=== PATIENT | female | born 1960 | race Caucasian/White ===

== ENCOUNTER 2020-05-08 22:33 | Emergency (ER) | payer MEDICARE ==
[2020-05-08] MEDS ORDERED: BABY ASPIRIN 81 MG CHEW PO ONE (23:07)
[2020-05-08] MEDS ORDERED: Nitrostat 0.4 MG (ED) SL ONE ×2 (23:07→23:47)
--- NOTE | 2020-05-08 23:10 | ERPHSYRPT ---
- History of Present Illness Time Seen by Provider: 05/08/20 23:02 Historian: patient Exam Limitations: no limitations Physician History: For the past 3 days pt has had left upper extremity pain; for the past 2 days HTN up to 162/108, mid back pain, shortness of air, nausea and mid chest heaviness. Aspirin Treatment Today: 81 mg x 4, provided by ED Allergies/Adverse Reactions: cephalexin [From Keflex] Allergy (Mild, Verified 05/09/20 00:38) Rash Home Medications: Duloxetine HCl 30 mg [Cymbalta 30 MG Capsule] 90 mg PO DAILY 05/09/20 [History] Levothyroxine Sodium 112 Mcg [Synthroid 112 Mcg] 112 mcg PO DAILY 05/09/20 [History] Metoprolol Succinate 100 mg [Toprol Xl 100 MG] 100 mg PO DAILY 05/09/20 [History] - Review of Systems Constitutional: No Fever Ears, Nose, & Throat: No Ear Pain, No Throat Pain Respiratory: Dyspnea, No Cough Cardiac: Other (chest heaviness) Abdominal/Gastrointestinal: Nausea, No Abdominal Pain, No Vomiting, No Diarrhea Genitourinary Symptoms: No Dysuria Musculoskeletal: Back Pain, Other (left upper extremity pain) Neurological: No Headache All Other Systems: Reviewed and Negative - Nursing Vital Signs Nursing Vital Signs: Initial Vital Signs Pulse Rate 83 05/08/20 23:35 Respiratory Rate 22 05/08/20 23:35 Blood Pressure 142/95 05/08/20 23:35 O2 Sat by Pulse Oximetry 98 05/08/20 23:35 Pain Scale Pain Intensity 3 - Physical Exam General Appearance: alert Eye Exam: PERRL/EOMI Ears, Nose, Throat Exam: pharynx normal Neck Exam: normal inspection Respiratory Exam: lungs clear Cardiovascular Exam: normal heart sounds Gastrointestinal/Abdomen Exam: soft, normal bowel sounds Back Exam: normal range of motion Extremity Exam: normal inspection Neurologic Exam: alert, cooperative Skin Exam: warm, dry SpO2 Interpretation: normal SpO2: 98 O2 Delivery: Room Air - Course Nursing assessment & vital signs reviewed: Yes EKG Interpreted by Me: RATE (71), Sinus Rhythm, NORMAL AXIS, Non-specific ST Changes - Radiology Exams Chest X-ray Interpretation: Interpreted by me, No Pneumonia Ordered Tests: Active Orders 24 hr Category Date Time Status Director Veterinary STAT Care 05/08/20 23:08 Active EKG-ER Only STAT Care 05/08/20 23:07 Active EKG-ER Only STAT Care 05/09/20 03:09 Active IV Insertion STAT Care 05/08/20 23:07 Active Pulse Oximetry (ED) STAT Care 05/08/20 23:07 Active CHEST 2 VIEWS (PA AND LAT) Stat Exams 05/09/20 00:30 Taken CBC W DIFF Stat Lab 05/08/20 23:41 Completed CMP Stat Lab 05/08/20 23:41 Completed D-DIMER QUANTITATIVE Stat Lab 05/08/20 23:41 Completed MAGNESIUM Stat Lab 05/08/20 23:41 Completed NT PRO BNP Stat Lab 05/08/20 23:41 Completed PROTIME WITH INR Stat Lab 05/08/20 23:41 Completed PTT Stat Lab 05/08/20 23:41 Completed TROPONIN Q3H Lab 05/08/20 23:41 Completed TROPONIN Q3H Lab 05/09/20 02:58 Completed TROPONIN Q3H Lab 05/09/20 05:15 Ordered TROPONIN Q3H Lab 05/09/20 08:15 Ordered TROPONIN Q3H Lab 05/09/20 11:15 Ordered Medication Summary Generic Name Dose Route Start Last Admin Trade Name Freq PRN Reason Stop Dose Admin Sodium Chloride 1,000 mls @ 100 mls/hr 05/08/20 23:15 05/08/20 23:52 Sodium Chloride 0.9% 1000 Ml IV 06/07/20 23:14 100 mls/hr .Q10H [place] Administration Discontinued Medications Generic Name Dose Route Start Last Admin Trade Name Freq PRN Reason Stop Dose Admin Aspirin 324 mg 05/08/20 23:07 05/08/20 23:52 Baby Aspirin 81 Mg Chew PO 05/08/20 23:08 324 mg STAT ONE Administration Aspirin Confirm 05/08/20 23:47 Baby Aspirin 81 Mg Chew Administered 05/08/20 23:48 Dose 324 mg .ROUTE .STK-MED ONE Nitroglycerin 0.4 mg 05/08/20 23:07 05/08/20 23:53 Nitrostat 0.4 Mg (Ed) SL 05/08/20 23:08 0.4 mg STAT ONE Administration Nitroglycerin Confirm 05/08/20 23:47 Nitrostat 0.4 Mg (Ed) Administered 05/08/20 23:48 Dose 0.4 mg SL .STK-MED ONE Lab/Rad Data: Laboratory Result Diagrams 05/08/20 23:41 05/08/20 23:41 Laboratory Results 05/09/20 05/08/20 05/08/20 Range/Units 02:58 23:41 23:41 WBC (4.0-10.5) K/mm3 RBC (4.1-5.4) M/mm3 Hgb (12.0-16.0) gm/dl Hct (35-47) % MCV (78-100) fl MCH (26-32) pg MCHC (32-36) g/dl RDW (11.5-14.0) % Plt Count (150-450) K/mm3 MPV (7.5-11.0) fl Gran % (36.0-66.0) % Eos # (Auto) (0-0.5) Absolute Lymphs (auto) (1.0-4.6) Absolute Monos (auto) (0.0-1.3) Lymphocytes % (24.0-44.0) % Monocytes % (0.0-12.0) % Eosinophils % (0.00-5.0) % Basophils % (0.0-0.4) % Absolute Granulocytes (1.4-6.9) Basophils # (0-0.4) PT 11.7 (9.95-12.35) SECONDS INR 1.04 (0.8-3.0) APTT 31.6 (25.3-37.0) SECONDS D-Dimer 322 (215-500) ng/mL Sodium (137-145) mmol/L Potassium (3.5-5.1) mmol/L Chloride (98-107) mmol/L Carbon Dioxide (22-30) mmol/L Anion Gap (5-15) MEQ/L BUN (7-17) mg/dL Creatinine (0.52-1.04) mg/dL Estimated GFR ML/MIN Glucose (74-106) mg/dL Calcium (8.4-10.2) mg/dL Magnesium (1.6-2.3) mg/dL Total Bilirubin (0.2-1.3) mg/dL AST (14-36) U/L ALT (0-35) U/L Alkaline Phosphatase (38-126) U/L Troponin I < 0.012 < 0.012 (0.000-0.034) ng/mL NT-Pro-B Natriuret Pep (0-900) pg/mL Serum Total Protein (6.3-8.2) g/dL Albumin (3.5-5.0) g/dL 05/08/20 05/08/20 Range/Units 23:41 23:41 WBC 8.4 (4.0-10.5) K/mm3 RBC 4.60 (4.1-5.4) M/mm3 Hgb 13.9 (12.0-16.0) gm/dl Hct 41.5 (35-47) % MCV 90.2 (78-100) fl MCH 30.2 (26-32) pg MCHC 33.5 (32-36) g/dl RDW 14.2 H (11.5-14.0) % Plt Count 315 (150-450) K/mm3 MPV 10.2 (7.5-11.0) fl Gran % 45.1 (36.0-66.0) % Eos # (Auto) 0.29 (0-0.5) Absolute Lymphs (auto) 3.55 (1.0-4.6) Absolute Monos (auto) 0.73 (0.0-1.3) Lymphocytes % 42.5 (24.0-44.0) % Monocytes % 8.7 (0.0-12.0) % Eosinophils % 3.5 (0.00-5.0) % Basophils % 0.2 (0.0-0.4) % Absolute Granulocytes 3.77 (1.4-6.9) Basophils # 0.02 (0-0.4) PT (9.95-12.35) SECONDS INR (0.8-3.0) APTT (25.3-37.0) SECONDS D-Dimer (215-500) ng/mL Sodium 139 (137-145) mmol/L Potassium 3.5 (3.5-5.1) mmol/L Chloride 104 (98-107) mmol/L Carbon Dioxide 28 (22-30) mmol/L Anion Gap 10.9 (5-15) MEQ/L BUN 12 (7-17) mg/dL Creatinine 0.92 (0.52-1.04) mg/dL Estimated GFR > 60.0 ML/MIN Glucose 110 H (74-106) mg/dL Calcium 8.8 (8.4-10.2) mg/dL Magnesium 2.0 (1.6-2.3) mg/dL Total Bilirubin 0.40 (0.2-1.3) mg/dL AST 28 (14-36) U/L ALT 21 (0-35) U/L Alkaline Phosphatase 74 (38-126) U/L Troponin I (0.000-0.034) ng/mL NT-Pro-B Natriuret Pep 55.8 (0-900) pg/mL Serum Total Protein 8.1 (6.3-8.2) g/dL Albumin 4.3 (3.5-5.0) g/dL - Progress Progress: unchanged Progress Note: 05/09/20 04:15 second EKG(0412): rate = 61, normal axis, sinus rhythm. Counseled pt/family regarding: lab results, diagnosis, rad results - Departure Departure Disposition: Home Clinical Impression: Chest heaviness, Dyspnea, Nausea, Back pain, Pain of left upper extremity, Hypertension Condition: Stable Critical Care Time: No Referrals: DOCTOR,NO FAMILY [Primary Care Provider] - Instructions: Chest Pain Additional Instructions: Follow up with private doctor tomorrow. Forms: Work/School Release Form Prescriptions: Ondansetron ODT 4 MG [Zofran Odt 4 mg] 4 mg PO Q6H PRN PRN #10 tab.rapdis PRN Reason: Nausea/Vomiting
[2020-05-08] MEDS ORDERED: Sodium Chloride 0.9% 1000 ML 1,000 ML IV SCH (23:15)
[2020-05-08 23:46] LABS: Absolute Neutrophil Ct (ANC) 3.77 (1.4-6.9); BASOPHIL % 0.2 % (0.0-0.4); Basophil (Absolute #) 0.02 (0-0.4); Eosinophil % 3.5 % (0.00-5.0); Eosinophil (Absolute #) 0.29 (0-0.5); Hematocrit 41.5 % (35-47); Hemoglobin 13.9 gm/dl (12.0-16.0); Lymphocyte (Absolute #) 3.55 (1.0-4.6); Lymphocytes % 42.5 % (24.0-44.0); Mean Cell Volume 90.2 fl (78-100); Mean Corpuscular Hemoglobin 30.2 pg (26-32); Mean Corpuscular Hgb Concent. 33.5 g/dl (32-36); Mean Platelet Volume 10.2 fl (7.5-11.0); Monocyte (Absolute #) 0.73 (0.0-1.3); Monocytes % 8.7 % (0.0-12.0); Neutrophil % 45.1 % (36.0-66.0); Platelet Count 315 K/mm3 (150-450); Red Cell Distribution Width 14.2 % (11.5-14.0); White Blood Count 8.4 K/mm3 (4.0-10.5)
[2020-05-08] MEDS ORDERED: Sodium Chloride 0.9% 1000 ML 1,000 ML ONE (23:47)
[2020-05-08] MEDS ORDERED: BABY ASPIRIN 81 MG CHEW ONE (23:47)
[2020-05-08 23:57] LABS: INR 1.04 (0.8-3.0); PROTIME 11.7 SECONDS (9.95-12.35)
[2020-05-08 23:59] LABS: PTT 31.6 SECONDS (25.3-37.0)
[2020-05-09 00:11] LABS: ALBUMIN 4.3 g/dL (3.5-5.0); ALKALINE PHOSPHATASE 74 U/L (38-126); ANION GAP 10.9 MEQ/L (5-15); BLOOD UREA NITROGEN 12 mg/dL (7-17); CHLORIDE 104 mmol/L (98-107); Calcium 8.8 mg/dL (8.4-10.2); Carbon Dioxide 28 mmol/L (22-30); Creatinine 1 0.92 mg/dL (0.52-1.04); EST GLOMERULAR FILTRATION RATE > 60.0 ML/MIN; Glucose 110 mg/dL (74-106); NT PRO BNP 55.8 pg/mL (0-900); Potassium 3.5 mmol/L (3.5-5.1); SGOT/AST 28 U/L (14-36); SGPT/ALT 21 U/L (0-35); SODIUM 139 mmol/L (137-145); Total Protein 8.1 g/dL (6.3-8.2)
[2020-05-09 05:01] VITALS: BP 164/99; PULSE 65; O2SAT 97
--- NOTE | 2020-05-09 09:18 | XRAY ---
Indication: Chest heaviness. Comparison: September 06, 2011. PA/lateral chest remains hyperinflated and clear. Heart is not enlarged. Bony thorax intact. No new/acute findings.
== END 2020-05-09 04:55 | disposition home or self-care (01) ==
LOC: ED 22:33
DX: R07.89 Other chest pain (principal); R11.0 Nausea; M54.5 Low back pain; M79.602 Pain in left arm; I10 Essential (primary) hypertension; R06.00 Dyspnea, unspecified
CPT/HCPCS: 36000; 36415; 71046; 80053; 83735; 83880; 84484; 85025; 85379; 85610; 85730; 93005; 93041; 94760; 99284; A9270-GY

== ENCOUNTER 2021-01-31 13:17 | Emergency (ER) | payer MEDICARE ==
[2021-01-31] MEDS ORDERED: MORPHINE SULFATE 4 MG INJ IV ONE (13:41)
[2021-01-31] MEDS ORDERED: Zofran 4 MG/2 ML VIAL IV ONE (13:41)
[2021-01-31] MEDS ORDERED: Sodium Chloride 0.9% 500 ML 500 ML IV ONE (13:45)
--- NOTE | 2021-01-31 13:50 | ERPHSYRPT ---
- History of Present Illness Time Seen by Provider: 01/31/21 13:18 Historian: patient Exam Limitations: no limitations Patient Subjective Stated Complaint: pt co pain to right side flank and right side of abd since last night no nausea or vomiting.no pain with urnination Triage Nursing Assessment: pt alert, resp easy, skin w/d/p, bas soft but tender to touch Physician History: 60 years old female with history of hypertension, hyperlipidemia, hypothyroidism, chronic back pain presented in the ER with chief complaint of right flank/right lower quadrant pain gradually worsening since last night moderate to severe intensity sharp pain without associated nausea vomiting or difficulty urination. Denies any diarrhea constipation. Does have history of back pain but this is different than her routine back pain. No numbness tingling or weakness of lower extremities. No loss of bowel or bladder control. Denies any history of kidney stones. Timing/Duration: yesterday, gradual onset, worse Activities at Onset: rest Quality: sharpness Abdominal Pain Onset Location: RLQ, flank Pain Radiation: RLQ Severity of Pain-Max: severe Severity of Pain-Current: severe Modifying Factors: Improves With: rest. Worsens With: coughing, movement, palpation Associated Symptoms: denies symptoms Previous symptoms: no prior history Allergies/Adverse Reactions: cephalexin [From Keflex] Allergy (Mild, Verified 01/31/21 13:33) Rash Home Medications: Duloxetine HCl 30 mg [Cymbalta 30 MG Capsule] 90 mg PO DAILY 05/09/20 [History] Levothyroxine Sodium 112 Mcg [Synthroid 112 Mcg] 112 mcg PO DAILY 05/09/20 [History] Metoprolol Succinate 100 mg [Toprol Xl 100 MG] 100 mg PO DAILY 05/09/20 [History] Lisinopril 10 mg [Zestril 10 MG] 1 ea DAILY 01/31/21 [History] Hx Tetanus, Diphtheria Vaccination/Date Given: No Hx Influenza Vaccination/Date Given: No Hx Pneumococcal Vaccination/Date Given: No Immunizations Up to Date: Yes Travel Risk - International Travel Have you traveled outside of the country in past 3 weeks: No - Coronavirus Screening Are you exhibiting any of the following symptoms?: No Close contact with a COVID-19 positive Pt in past 14-21 Days: No - Vaccine Status Have you recieved a Covid-19 vaccination: No - Review of Systems Constitutional: No Symptoms Eyes: No Symptoms Ears, Nose, & Throat: No Symptoms Respiratory: No Symptoms Cardiac: No Symptoms Abdominal/Gastrointestinal: Abdominal Pain Genitourinary Symptoms: No Symptoms Musculoskeletal: Back Pain Skin: No Symptoms Neurological: No Symptoms Psychological: No Symptoms Endocrine: No Symptoms Hematologic/Lymphatic: No Symptoms Immunological/Allergic: No Symptoms - Past Medical History Pertinent Past Medical History: Yes Neurological History: Migraines Cardiac History: Hypertension Endocrine Medical History: Hypothyroidism, Thyroid Cancer Musculoskeletal History: Arthritis, Fibromyalgia Psycho-Social History: Anxiety, Depression - Past Surgical History Past Surgical History: Yes Gastrointestinal: Cholecystectomy Female Surgical History: Hysterectomy, Section Other Surgical History: thyroidectomy - Social History Smoking Status: Never smoker Exposure to second hand smoke: Yes Drug Use: none Patient Lives Alone: Yes - Female History Hx Last Menstrual Period: post - Nursing Vital Signs Nursing Vital Signs: Initial Vital Signs Pulse Rate 72 01/31/21 15:21 Blood Pressure 163/98 01/31/21 15:21 O2 Sat by Pulse Oximetry 96 01/31/21 15:21 Pain Scale Pain Intensity [Right Lower 7 Abdomen] Pain Intensity 7 - Physical Exam General Appearance: no apparent distress, alert Eye Exam: PERRL/EOMI Ears, Nose, Throat Exam: normal ENT inspection, pharynx normal Neck Exam: normal inspection, non-tender, supple, full range of motion Respiratory Exam: normal breath sounds, lungs clear Cardiovascular Exam: regular rate/rhythm, normal heart sounds Gastrointestinal/Abdomen Exam: soft, normal bowel sounds, tenderness, guarding (Right lower quadrant/right flank) Back Exam: normal inspection, CVA tenderness, vertebral tenderness (Lumbar spinal and paraspinal tenderness. Also right sacroiliac area tenderness.), decreased range of motion, muscle spasm Extremity Exam: normal inspection, normal range of motion, pelvis stable Neurologic Exam: alert, oriented x 3, cooperative, statistical typist II-XII nml as tested, other (2+ reflexes bilateral symmetrical in lower extremities) Skin Exam: normal color, warm SpO2 Interpretation: normal O2 Delivery: Room Air Ordered Tests: Active Orders 24 hr Category Date Time Status IV Insertion STAT Care 01/31/21 13:41 Active ABDOMEN AND PELVIS W CONTRAST [CT] Stat Exams 01/31/21 13:42 Completed RECONSTRUCTION [CT] Routine Exams 01/31/21 13:47 Completed CBC W DIFF Stat Lab 01/31/21 14:08 Completed CMP Stat Lab 01/31/21 14:08 Completed LIPASE Stat Lab 01/31/21 14:08 Completed Lactic Acid Stat Lab 01/31/21 13:41 Completed UA W/RFX UR CULTURE Stat Lab 01/31/21 13:46 Completed Medication Summary Discontinued Medications Generic Name Dose Route Start Last Admin Trade Name Neftali PRN Reason Stop Dose Admin Sodium Chloride 500 mls @ 500 mls/hr 01/31/21 13:45 01/31/21 15:21 Sodium Chloride 0.9% 500 Ml IV 01/31/21 14:44 Infused .Q1H ONE Infusion Sodium Chloride Confirm 01/31/21 13:56 Sodium Chloride 0.9% 1000 Ml Administered 01/31/21 13:57 Dose 1,000 mls @ ud .ROUTE .STK-MED ONE Morphine Sulfate 4 mg 01/31/21 13:41 01/31/21 13:59 Morphine Sulfate 4 Mg Inj IV 01/31/21 13:42 4 mg STAT ONE Administration Morphine Sulfate Confirm 01/31/21 13:55 Morphine Sulfate 4 Mg Inj Administered 01/31/21 13:56 Dose 4 mg .ROUTE .STK-MED ONE Ondansetron HCl 4 mg 01/31/21 13:41 01/31/21 13:59 Zofran 4 Mg/2 Ml Vial IV 01/31/21 13:42 4 mg STAT ONE Administration Ondansetron HCl Confirm 01/31/21 13:55 Zofran 4 Mg/2 Ml Vial Administered 01/31/21 13:56 Dose 4 mg .ROUTE .STK-MED ONE Lab/Rad Data: Laboratory Result Diagrams 01/31/21 14:08 01/31/21 14:08 Laboratory Results 01/31/21 01/31/21 01/31/21 Range/Units 14:08 14:08 13:46 WBC 8.7 (4.0-10.5) K/mm3 RBC 4.81 (4.1-5.4) M/mm3 Hgb 14.2 (12.0-16.0) gm/dl Hct 43.6 (35-47) % MCV 90.6 (78-100) fl MCH 29.5 (26-32) pg MCHC 32.6 (32-36) g/dl RDW 13.8 (11.5-14.0) % Plt Count 380 (150-450) K/mm3 MPV 10.4 (7.5-11.0) fl Gran % 58.0 (36.0-66.0) % Eos # (Auto) 0.19 (0-0.5) Absolute Lymphs (auto) 2.86 (1.0-4.6) Absolute Monos (auto) 0.58 (0.0-1.3) Lymphocytes % 32.9 (24.0-44.0) % Monocytes % 6.7 (0.0-12.0) % Eosinophils % 2.2 (0.00-5.0) % Basophils % 0.2 (0.0-0.4) % Absolute Granulocytes 5.03 (1.4-6.9) Basophils # 0.02 (0-0.4) Sodium 142 (137-145) mmol/L Potassium 4.0 (3.5-5.1) mmol/L Chloride 102 (98-107) mmol/L Carbon Dioxide 33 H (22-30) mmol/L Anion Gap 11.0 (5-15) MEQ/L BUN 8 (7-17) mg/dL Creatinine 0.99 (0.52-1.04) mg/dL Estimated GFR > 60.0 ML/MIN Glucose 90 (74-106) mg/dL Lactic Acid (0.4-2.0) Calcium 9.1 (8.4-10.2) mg/dL Total Bilirubin 0.40 (0.2-1.3) mg/dL AST 27 (14-36) U/L ALT 20 (0-35) U/L Alkaline Phosphatase 83 (38-126) U/L Serum Total Protein 8.1 (6.3-8.2) g/dL Albumin 4.4 (3.5-5.0) g/dL Lipase 39 (23-300) U/L Urine Color YELLOW (YELLOW) Urine Appearance CLEAR (CLEAR) Urine pH 5.0 (5-6) Ur Specific [place] 1.014 (1.005-1.025) Urine Protein NEGATIVE (Negative) Urine Ketones NEGATIVE (NEGATIVE) Urine Blood NEGATIVE (0-5) Nic/ul Urine Nitrite NEGATIVE (NEGATIVE) Urine Bilirubin NEGATIVE (NEGATIVE) Urine Urobilinogen NEGATIVE (0-1) mg/dL Ur Leukocyte Esterase NEGATIVE (NEGATIVE) Urine WBC (Auto) NONE (0-5) /HPF Urine RBC (Auto) NONE (0-2) /HPF U Epithel Cells (Auto) NONE (FEW) /HPF Urine Bacteria (Auto) NONE (NEGATIVE) /HPF Urine Mucus (Auto) SLIGHT (NEGATIVE) /HPF Urine Culture Reflexed NO (NO) Urine Glucose NEGATIVE (NEGATIVE) mg/dL 01/31/21 Range/Units 13:41 WBC (4.0-10.5) K/mm3 RBC (4.1-5.4) M/mm3 Hgb (12.0-16.0) gm/dl Hct (35-47) % MCV (78-100) fl MCH (26-32) pg MCHC (32-36) g/dl RDW (11.5-14.0) % Plt Count (150-450) K/mm3 MPV (7.5-11.0) fl Gran % (36.0-66.0) % Eos # (Auto) (0-0.5) Absolute Lymphs (auto) (1.0-4.6) Absolute Monos (auto) (0.0-1.3) Lymphocytes % (24.0-44.0) % Monocytes % (0.0-12.0) % Eosinophils % (0.00-5.0) % Basophils % (0.0-0.4) % Absolute Granulocytes (1.4-6.9) Basophils # (0-0.4) Sodium (137-145) mmol/L Potassium (3.5-5.1) mmol/L Chloride (98-107) mmol/L Carbon Dioxide (22-30) mmol/L Anion Gap (5-15) MEQ/L BUN (7-17) mg/dL Creatinine (0.52-1.04) mg/dL Estimated GFR ML/MIN Glucose (74-106) mg/dL Lactic Acid 1.3 (0.4-2.0) Calcium (8.4-10.2) mg/dL Total Bilirubin (0.2-1.3) mg/dL AST (14-36) U/L ALT (0-35) U/L Alkaline Phosphatase (38-126) U/L Serum Total Protein (6.3-8.2) g/dL Albumin (3.5-5.0) g/dL Lipase (23-300) U/L Urine Color (YELLOW) Urine Appearance (CLEAR) Urine pH (5-6) Ur Specific [place] (1.005-1.025) Urine Protein (Negative) Urine Ketones (NEGATIVE) Urine Blood (0-5) Nic/ul Urine Nitrite (NEGATIVE) Urine Bilirubin (NEGATIVE) Urine Urobilinogen (0-1) mg/dL Ur Leukocyte Esterase (NEGATIVE) Urine WBC (Auto) (0-5) /HPF Urine RBC (Auto) (0-2) /HPF U Epithel Cells (Auto) (FEW) /HPF Urine Bacteria (Auto) (NEGATIVE) /HPF Urine Mucus (Auto) (NEGATIVE) /HPF Urine Culture Reflexed (NO) Urine Glucose (NEGATIVE) mg/dL - Progress Progress: improved, re-examined Progress Note: 01/31/21 16:08 60 years old is evaluated for right flank/right lower quadrant and back pain. She is given symptomatic treatment for pain, on reevaluation feeling much bet ter. No peritoneal signs on repeated evaluation. She has a normal white count, grossly unremarkable chemistries. No UTI. I have obtained CT abdomen pelvis with IV contrast which is negative for any acute intraabdominal findings. I have also obtained lumbar reconstruction which showed L4-S1 disc bulge but has negative neuro exam in lower extremities. Do not think she needs emergent MRI. This could be the cause of her pain. She is advised to follow-up with her primary care for reevaluation. We will give pain medications to go home to take as needed. Discussed signs symptoms of worsening needing return to ER which she seems understanding. 01/31/21 16:10 Counseled pt/family regarding: lab results, diagnosis, need for follow-up, rad results - Departure Departure Disposition: Home Clinical Impression: Bulging lumbar disc, RLQ abdominal pain Condition: Stable Critical Care Time: No Referrals: VANDANA RING NP [Primary Care Provider] - (1-2 days for reevaluation) Instructions: Low Back Pain (DC), Acute Abdomen (Belly Pain), Adult (DC) Additional Instructions: Take pain medications as needed. Avoid exertional activities. Follow-up with primary care physician for reevaluation and may need MRI of your back for further evaluation of bulging disc. Return to ER for intractable pain, numbness tingling weakness of lower extremities/loss of bowel or bladder control. Prescriptions: Hydrocodone/APAP 5/325 [[place] 5/325 mg] 1 each PO Q6H PRN PRN 3 Days #12 tablet MDD 4 PRN Reason: Pain Cyclobenzaprine HCl 10 mg [Flexeril 10 MG] 10 mg PO TID #20 tablet
[2021-01-31] MEDS ORDERED: Zofran 4 MG/2 ML VIAL ONE (13:55)
[2021-01-31] MEDS ORDERED: MORPHINE SULFATE 4 MG INJ ONE (13:55)
[2021-01-31] MEDS ORDERED: Sodium Chloride 0.9% 1000 ML 1,000 ML ONE (13:56)
[2021-01-31 14:06] LABS: Appearance CLEAR (CLEAR); Bilirubin NEGATIVE (NEGATIVE); Blood NEGATIVE Ery/ul (0-5); Glucose NEGATIVE (NEGATIVE); Ketones NEGATIVE (NEGATIVE); Leukocyte Esterase NEGATIVE (NEGATIVE); Mucus SLIGHT /HPF (NEGATIVE); Nitrite NEGATIVE (NEGATIVE); Protein,Urine Dip NEGATIVE (Negative); Specific Gravity 1.014 (1.005-1.025); Urobilinogen NEGATIVE mg/dL (0-1)
[2021-01-31 14:09] LABS: Absolute Neutrophil Ct (ANC) 5.03 (1.4-6.9); BASOPHIL % 0.2 % (0.0-0.4); Basophil (Absolute #) 0.02 (0-0.4); Eosinophil % 2.2 % (0.00-5.0); Eosinophil (Absolute #) 0.19 (0-0.5); Hematocrit 43.6 % (35-47); Hemoglobin 14.2 gm/dl (12.0-16.0); Lymphocyte (Absolute #) 2.86 (1.0-4.6); Lymphocytes % 32.9 % (24.0-44.0); Mean Cell Volume 90.6 fl (78-100); Mean Corpuscular Hemoglobin 29.5 pg (26-32); Mean Corpuscular Hgb Concent. 32.6 g/dl (32-36); Mean Platelet Volume 10.4 fl (7.5-11.0); Monocyte (Absolute #) 0.58 (0.0-1.3); Monocytes % 6.7 % (0.0-12.0); Platelet Count 380 K/mm3 (150-450); Red Blood Count 4.81 M/mm3 (4.1-5.4); Red Cell Distribution Width 13.8 % (11.5-14.0); White Blood Count 8.7 K/mm3 (4.0-10.5)
[2021-01-31 14:22] LABS: ALBUMIN 4.4 g/dL (3.5-5.0); ALKALINE PHOSPHATASE 83 U/L (38-126); BLOOD UREA NITROGEN 8 mg/dL (7-17); CHLORIDE 102 mmol/L (98-107); Calcium 9.1 mg/dL (8.4-10.2); Carbon Dioxide 33 mmol/L (22-30); Creatinine 1 0.99 mg/dL (0.52-1.04); EST GLOMERULAR FILTRATION RATE > 60.0 ML/MIN; Glucose 90 mg/dL (74-106); LIPASE 39 U/L (23-300); SGOT/AST 27 U/L (14-36); SGPT/ALT 20 U/L (0-35); SODIUM 142 mmol/L (137-145); Total Protein 8.1 g/dL (6.3-8.2)
--- NOTE | 2021-01-31 15:29 | XRAY ---
Indication: Right abdomen pain. Multiple contiguous axial images obtained through the abdomen and pelvis using 80 cc Isovue 370 contrast. Comparison: None Lung bases demonstrates bilateral dependent atelectasis without infiltrate or effusion. Heart is not enlarged. Noncontrasted stomach and bowel loops appear nonobstructed. Appendix not seen. No free fluid/air. Splenic calcified granulomas, cholecystectomy, and hysterectomy. Remaining liver, pancreas, spleen, adrenal glands, kidneys, ureters, and bladder are unremarkable. Mild scattered aortic calcifications. No AAA or pathologic retroperitoneal lymphadenopathy. Osseous structures intact with minimal L4-S1 broad-based disc bulge. No ventral or inguinal hernias. Impression: 1. Splenic calcified granulomas and L4-S1 broad-based disc bulge. 2. Remaining CT abdomen/pelvis with contrast exam is negative.
--- NOTE | 2021-01-31 15:30 | XRAY ---
Indication: Low back pain. Sagittal, coronal, and axial reformatted images of the lumbar spine obtained using the raw data from CT abdomen/pelvis study of the same day. Comparison: None T12-L4 disc levels negative for disc herniation or spinal canal stenosis. Minimal L4-S1 broad-based disc bulge without spinal canal or foraminal stenosis. Facets are symmetric with mild L5-S1 degenerative facet hypertrophy. Sagittal and coronal reformatted images demonstrates normal lumbar alignment with minimal L5-S1 disc space loss. No acute compression fracture or subluxation. CT abdomen/pelvis reported separately. Impression: Minimal L4-S1 degenerative disc bulge better evaluated with outpatient MRI if clinically warranted.
[2021-01-31 16:13] VITALS: BP 165/100; PULSE 66; O2SAT 94
== END 2021-01-31 16:19 | disposition home or self-care (01) ==
LOC: ED 13:17
DX: M51.26 Other intervertebral disc displacement, lumbar region (principal); R10.31 Right lower quadrant pain
CPT/HCPCS: 36000; 36415; 74177; 76376; 80053; 81001; 83605; 83690; 85025; 96374; 96375; 99284; J2270; J2405

== ENCOUNTER 2024-08-07 21:00 | Emergency (ER) | payer MEDICARE, OTHER ==
--- NOTE | 2024-08-07 21:02 | ERPHSYRPT ---
- History of Present Illness Time Seen by Provider: 08/07/24 21:02 Source: patient, family Exam Limitations: no limitations Physician History: This is a 64-year-old white female patient who arrives to the emergency department by private vehicle accompanied by her significant other for evaluation of hypertension. Patient was at home and she felt a slight chest pain and a little nauseated and her systolic blood pressure was in the 180s and her diastolic blood pressure was 120. She had already taken her blood pressure medication for the day but was instructed to take a clonidine as her third medication if needed in the event her blood pressure continue to be elevated. She took the clonidine 0.1 mg and slowly her blood pressure was decreasing but wanted to be evaluated further in the emergency department. Upon arrival to the emergency department her for systolic blood pressure was 153. The second systolic blood pressure was 113 mmHg. Patient currently has no chest pain. She is not short of breath. She does have chronic left hip sciatica. She normally takes [place] 5/325 tablets which she is out. She does see a pain specialist next week for evaluation management of her left hip/sciatica pain Timing/Duration: today Severity: mild Associated Symptoms: denies symptoms Allergies/Adverse Reactions: cephalexin [From Keflex] Allergy (Mild, Verified 08/07/24 22:01) Rash Home Medications: Duloxetine HCl 30 mg [Cymbalta 30 MG Capsule] 90 mg PO DAILY 05/09/20 [History] Levothyroxine Sodium 112 Mcg [Synthroid 112 Mcg] 112 mcg PO DAILY 05/09/20 [History] Metoprolol Succinate 100 mg [Toprol Xl 100 MG] 100 mg PO DAILY 05/09/20 [History] Lisinopril 10 mg [Zestril 10 MG] 1 ea DAILY 01/31/21 [History] Hx Tetanus, Diphtheria Vaccination/Date Given: No Hx Influenza Vaccination/Date Given: No Hx Pneumococcal Vaccination/Date Given: No Travel Risk - International Travel Have you traveled outside of the country in past 3 weeks: No - Emerging Infectious Disease Are you exhibiting symptoms associated with any current EIDs: No - Review of Systems Constitutional: No Symptoms Eyes: No Symptoms Ears, Nose, & Throat: No Symptoms Respiratory: No Symptoms Cardiac: No Symptoms Abdominal/Gastrointestinal: No Symptoms Genitourinary Symptoms: No Symptoms Musculoskeletal: No Symptoms Skin: No Symptoms Neurological: No Symptoms Psychological: No Symptoms Endocrine: No Symptoms Hematologic/Lymphatic: No Symptoms - Past Medical History Pertinent Past Medical History: Yes Neurological History: Migraines Cardiac History: Hypertension Endocrine Medical History: Hypothyroidism, Thyroid Cancer Musculoskeletal History: Arthritis, Fibromyalgia Psycho-Social History: Anxiety, Depression - Past Surgical History Past Surgical History: Yes Gastrointestinal: Cholecystectomy Female Surgical History: Hysterectomy, Section Other Surgical History: thyroidectomy - Social History Smoking Status: Never smoker Exposure to second hand smoke: Yes Drug Use: none Patient Lives Alone: Yes - Nursing Vital Signs Nursing Vital Signs: Initial Vital Signs Temperature 98.2 F 08/07/24 21:44 Pulse Rate 83 08/07/24 21:44 Respiratory Rate 18 08/07/24 21:44 Blood Pressure 153/100 08/07/24 21:44 O2 Sat by Pulse Oximetry 96 08/07/24 21:44 Pain Scale Pain Intensity 3 - Physical Exam General Appearance: no apparent distress, alert, anxiety Eye Exam: PERRL/EOMI, eyes nml inspection Ears, Nose, Throat Exam: normal ENT inspection, moist mucous membranes Neck Exam: normal inspection, non-tender, supple, full range of motion Respiratory Exam: normal breath sounds, lungs clear, airway intact, No chest tenderness, No respiratory distress Cardiovascular Exam: regular rate/rhythm, normal heart sounds, normal peripheral pulses Gastrointestinal/Abdomen Exam: soft, normal bowel sounds, No tenderness Pelvic Exam: not done Rectal Exam: not done Back Exam: normal inspection, normal range of motion, No CVA tenderness, No vertebral tenderness Extremity Exam: normal inspection, normal range of motion, pelvis stable Neurologic Exam: alert, oriented x 3, cooperative, foundation coordinator II-XII nml as tested Skin Exam: normal color, warm, dry Lymphatic Exam: No adenopathy SpO2 Interpretation: normal O2 Delivery: Room Air - Course Nursing assessment & vital signs reviewed: Yes EKG Interpreted by Me: RATE (81), Sinus Rhythm, NORMAL AXIS, NORMAL INTERVALS, NORMAL QRS, Other (No acute ischemic changes on today's twelve-lead EKG.) Ordered Tests: Active Orders 24 hr Category Date Time Status EKG-ER Only STAT Care 08/07/24 23:00 Active IV Insertion STAT Care 08/07/24 22:08 Active CBC W DIFF Stat Lab 08/07/24 22:00 Completed CMP Stat Lab 08/07/24 22:00 Completed CULTURE,URINE Stat Lab 08/07/24 22:32 Received TROPONIN Q4H Lab 08/07/24 23:02 Completed TROPONIN Q4H Lab 08/08/24 03:00 Ordered TROPONIN Q4H Lab 08/08/24 07:00 Ordered UA W/RFX UR CULTURE Stat Lab 08/07/24 22:32 Completed Medication Summary Discontinued Medications Generic Name Dose Route Start Last Admin Trade Name Neftali PRN Reason Stop Dose Admin Hydrocodone Bitart/Acetaminophen 1 tab 08/07/24 22:53 08/07/24 22:58 Hydrocodone/Apap 5/325 1 Tab Tablet PO 08/07/24 22:54 1 tab STAT ONE Administration Hydrocodone Bitart/Acetaminophen Confirm 08/07/24 22:57 Hydrocodone/Apap 5/325 1 Tab Tablet Administered 08/07/24 22:58 Dose 1 tab .ROUTE .STK-MED ONE Lab/Rad Data: Laboratory Result Diagrams 08/07/24 22:00 08/07/24 22:00 Laboratory Results 08/07/24 08/07/24 08/07/24 Range/Units 23:02 22:32 22:00 WBC (3.98-10.04) x10^3/uL RBC (3.93-5.22) x10^6/uL Hgb (11.2-15.7) g/dL Hct (34.1-44.9) % MCV (79.4-94.8) fL MCH (25.6-32.2) pg MCHC (32.2-35.5) g/dL RDW (11.7-14.4) % Plt Count (182-369) x10^3/uL MPV (9.4-12.3) fL Gran % (34.0-71.1) % Immature Gran % (Auto) (0.001-0.429) % Nucleat RBC Rel Count (0.00-0.2) % Eos # (Auto) (0.04-0.36) x10^3/uL Immature Gran # (Auto) (0.001-0.031) x10^3u/L Absolute Lymphs (auto) (1.18-3.74) x10^3/uL Absolute Monos (auto) (0.24-0.86) x10^3/uL Absolute Nucleated RBC (0.00-0.012) x10^3u/L Lymphocytes % (19.3-51.7) % Monocytes % (4.7-12.5) % Eosinophils % (0.7-5.8) % Basophils % (0.1-1.2) % Absolute Granulocytes (1.56-6.13) x10^3/uL Basophils # (0.01-0.08) x10^3/uL Sodium 140 (135-145) mmol/L Potassium 4.2 (3.5-5.1) mmol/L Chloride 104 (98-107) mmol/L Carbon Dioxide 25 (22-30) mmol/L Anion Gap 15.8 H (5-15) MEQ/L BUN 13 (7-17) mg/dL Creatinine 0.89 (0.52-1.04) mg/dL Estimated GFR 72.4 ML/MIN Glucose 111 H (74-106) mg/dL Calcium 8.8 (8.4-10.2) mg/dL Total Bilirubin 0.40 (0.2-1.3) mg/dL AST 30 (14-36) U/L ALT 37 H (0-35) U/L Alkaline Phosphatase 93 (38-126) U/L Troponin I < 0.012 (0.000-0.033) ng/mL Serum Total Protein 7.9 (6.3-8.2) g/dL Albumin 4.2 (3.5-5.0) g/dL Urine Color Yellow (Yellow) Urine Appearance Clear (Clear) Urine pH 5.0 (4.6-8.0) Ur Specific [place] 1.015 (1.005-1.030) Urine Protein 30 (Negative) Urine Glucose (UA) Negative (Negative) mg/dL Urine Ketones Negative (Negative) Urine Blood Negative (Negative) Urine Nitrite Negative (Negative) Urine Bilirubin Negative (Negative) Urine Urobilinogen 0.2 (0.2) mg/dL Ur Leukocyte Esterase Trace A (Negative) U Hyaline Cast (Auto) NONE SEEN (0-2) /LPF Urine Microscopic RBC 0-2 (0-5) /HPF Urine Microscopic WBC 3-5 (0-5) /HPF Ur Epithelial Cells None Seen (None Seen) /HPF Urine Bacteria None Seen (None Seen) /HPF Urine Culture Reflexed YES (NO) 08/07/24 Range/Units 22:00 WBC 8.3 (3.98-10.04) x10^3/uL RBC 4.58 (3.93-5.22) x10^6/uL Hgb 13.4 (11.2-15.7) g/dL Hct 40.0 (34.1-44.9) % MCV 87.3 (79.4-94.8) fL MCH 29.3 (25.6-32.2) pg MCHC 33.5 (32.2-35.5) g/dL RDW 13.9 (11.7-14.4) % Plt Count 330 (182-369) x10^3/uL MPV 10.5 (9.4-12.3) fL Gran % 55.8 (34.0-71.1) % Immature Gran % (Auto) 0.4 (0.001-0.429) % Nucleat RBC Rel Count 0.0 (0.00-0.2) % Eos # (Auto) 0.22 (0.04-0.36) x10^3/uL Immature Gran # (Auto) 0.03 (0.001-0.031) x10^3u/L Absolute Lymphs (auto) 2.70 (1.18-3.74) x10^3/uL Absolute Monos (auto) 0.67 (0.24-0.86) x10^3/uL Absolute Nucleated RBC 0.00 (0.00-0.012) x10^3u/L Lymphocytes % 32.5 (19.3-51.7) % Monocytes % 8.1 (4.7-12.5) % Eosinophils % 2.7 (0.7-5.8) % Basophils % 0.5 (0.1-1.2) % Absolute Granulocytes 4.64 (1.56-6.13) x10^3/uL Basophils # 0.04 (0.01-0.08) x10^3/uL Sodium (135-145) mmol/L Potassium (3.5-5.1) mmol/L Chloride (98-107) mmol/L Carbon Dioxide (22-30) mmol/L Anion Gap (5-15) MEQ/L BUN (7-17) mg/dL Creatinine (0.52-1.04) mg/dL Estimated GFR ML/MIN Glucose (74-106) mg/dL Calcium (8.4-10.2) mg/dL Total Bilirubin (0.2-1.3) mg/dL AST (14-36) U/L ALT (0-35) U/L Alkaline Phosphatase (38-126) U/L Troponin I (0.000-0.033) ng/mL Serum Total Protein (6.3-8.2) g/dL Albumin (3.5-5.0) g/dL Urine Color (Yellow) Urine Appearance (Clear) Urine pH (4.6-8.0) Ur Specific [place] (1.005-1.030) Urine Protein (Negative) Urine Glucose (UA) (Negative) mg/dL Urine Ketones (Negative) Urine Blood (Negative) Urine Nitrite (Negative) Urine Bilirubin (Negative) Urine Urobilinogen (0.2) mg/dL Ur Leukocyte Esterase (Negative) U Hyaline Cast (Auto) (0-2) /LPF Urine Microscopic RBC (0-5) /HPF Urine Microscopic WBC (0-5) /HPF Ur Epithelial Cells (None Seen) /HPF Urine Bacteria (None Seen) /HPF Urine Culture Reflexed (NO) - Progress Progress: improved, re-examined Progress Note: 08/07/24 23:06 My medical decision making and the assignment of low to moderate complexity of this patient's medical issue today is based on review of the patient's past medical history, reviewed patient's medication list, reviewed patient drug allergy list, history present illness and physical findings on examination. The workup in this patient includes placement of intravenous line, CBC, CMP, troponin level, twelve-lead EKG. We will also provide the patient with a single oral dose of [place] 5/325 mg to help control her left hip/sciatica pain. Differential diagnosis includes but is not limited to hypertension, stress, myocardial infarction, electrolyte abnormalities, arrhythmia 08/08/24 00:14 I interpreted the patient's laboratory data repeat results. Based on the laboratory data results, there are no acute, emergent medical issues. Counseled pt/family regarding: lab results, need for follow-up Medical Desision Making - Independent Historian Additional History obtained from: Family - Diagnostic Testing Diagnostic test were ordered, analyzed, and reviewed by me: Yes - Risk of complications Low Risk: Low risk of morbidity from additional dx testing or treatment - Departure Departure Disposition: Home Clinical Impression: Hypertension, Sciatica Condition: Stable Critical Care Time: No Referrals: PARISA ARIAS FNP [Primary Care Provider] - Follow up/PCP as directed Additional Instructions: Take your blood pressure medications as prescribed. Keep your appointment with your pain management provider next week. Keep a morning noon and night daily log of your blood pressure readings over the next 48 hours. Call your primary care provider on 08/10/2024, to make arrangement for follow-up appointment for further evaluation management.
[2024-08-07 22:01] VITALS: TEMP 98.2
[2024-08-07 22:37] LABS: Absolute Neutrophil Ct (ANC) 4.64 x10^3/uL (1.56-6.13); BASOPHIL % 0.5 % (0.1-1.2); Basophil (Absolute #) 0.04 x10^3/uL (0.01-0.08); Eosinophil % 2.7 % (0.7-5.8); Eosinophil (Absolute #) 0.22 x10^3/uL (0.04-0.36); Hemoglobin 13.4 g/dL (11.2-15.7); IMMATURE GRAN # 0.03 x10^3u/L (0.001-0.031); IMMATURE GRAN % 0.4 % (0.001-0.429); Lymphocytes % 32.5 % (19.3-51.7); Mean Cell Volume 87.3 fL (79.4-94.8); Mean Corpuscular Hemoglobin 29.3 pg (25.6-32.2); Mean Corpuscular Hgb Concent. 33.5 g/dL (32.2-35.5); Mean Platelet Volume 10.5 fL (9.4-12.3); Monocyte (Absolute #) 0.67 x10^3/uL (0.24-0.86); Monocytes % 8.1 % (4.7-12.5); Neutrophil % 55.8 % (34.0-71.1); Platelet Count 330 x10^3/uL (182-369); Red Blood Count 4.58 x10^6/uL (3.93-5.22); Red Cell Distribution Width 13.9 % (11.7-14.4); White Blood Count 8.3 x10^3/uL (3.98-10.04)
[2024-08-07 22:40] LABS: Appearance Clear (Clear); Bacteria None Seen /HPF (None Seen); Bilirubin Negative (Negative); Blood Negative (Negative); Epithelial Cells None Seen /HPF (None Seen); Glucose, Urine Negative (Negative); Hyaline Casts NONE SEEN /LPF (0-2); Ketones Negative (Negative); Leukocyte Esterase Trace (Negative); Nitrite Negative (Negative); Protein,Urine Dip 30 (Negative); RBC 0-2 /HPF (0-5); Specific Gravity 1.015 (1.005-1.030); Urobilinogen 0.2 mg/dL (0.2)
[2024-08-07] MEDS ORDERED: NORCO 5/325 MG ONE (22:57)
[2024-08-07] MEDS: NORCO 5/325 MG PO ONE (22:58)
[2024-08-07 23:14] LABS: ALBUMIN 4.2 g/dL (3.5-5.0); ANION GAP 15.8 MEQ/L (5-15); BILIRUBIN,TOTAL 0.4 mg/dL (0.2-1.3); Calcium 8.8 mg/dL (8.4-10.2); Creatinine 1 0.89 mg/dL (0.52-1.04); EST GLOMERULAR FILTRATION RATE 72.4 ML/MIN; Potassium 4.2 mmol/L (3.5-5.1); Total Protein 7.9 g/dL (6.3-8.2)
[2024-08-08 00:09] VITALS: BP 105/76; PULSE 69; RESP 23; O2SAT 94
[2024-08-08] MEDS: NORCO 5/325 MG PO ONE (00:24)
[2024-08-08] MEDS ORDERED: NORCO 5/325 MG ONE (00:24)
== END 2024-08-08 00:37 | disposition home or self-care (01) ==
LOC: ED 21:00
DX: I10 Essential (primary) hypertension (principal); M54.32 Sciatica, left side; Z79.899 Other long term (current) drug therapy
CPT/HCPCS: 36415; 80053; 81001; 84484; 85025; 87086; 93005; 99284; A9270-GY